=== PATIENT | male | born 1995 | race African-American/Black ===

== ENCOUNTER 2020-12-17 13:38 | Emergency (ER) | payer SELFPAY ==
--- OUTSIDE RECORDS SUMMARY | 2020-12-17 13:41 | XMS REPORT | Continuity of Care Document ---
:1995 Author Organization [facility] t Address [address] [place] [address] Care Team Providers Name Role Phone Lab, Fernando Pob I Attending Clinician Unavailable Problems This patient has no known problems. Allergies, Adverse Reactions, Alerts This patient has no known allergies or adverse reactions. Medications This patient has no known medications. Procedures This patient has no known procedures. Encounters Start End Encounter Admission Attending Care Care Encounter Source Date/Time Date/Time Type Type Clinicians Facility Department ID 2020-05-28 2020-05-28 Laboratory Lab, [facility] [id number] 18:26:53 19:03:44 Only Fam Pob I [facility] [id number] [place] [id number] [address] [phone] [address] Results This patient has no known results.
[2020-12-17] MEDS ORDERED: IBUPROFEN 400 MG TAB ONE (14:56)
[2020-12-17] MEDS ORDERED: HYDROCODONE/APAP 7.5/325 MG TAB ONE (14:56)
--- NOTE | 2020-12-17 15:36 | EDPHYS ---
Physician Documentation [facility] Name: Cornell Armenta Age: 25 yrs Sex: Male : 1995 Arrival Date: 12/17/2020 Time: 13:40 Bed 7 Private MD: TYSHAWN Physician Madhu Price HPI: 12/17 14:30 This 25 yrs old Black Male presents to ER via Ambulatory with complaints of Leg Pain. cp 14:30 The patient presents with an injury, pain, that is acute. The complaints affect the cp right Achilles. 14:30 Context: The problem was sustained at a sports field or court, the patient can cp partially bear weight, the patient is able to ambulate, with moderate difficulty, Problem is a result from a previous injury: No. Onset: The symptoms/episode began/occurred yesterday. Historical: - Allergies: 14:02 No Known Allergies; jl7 - Home Meds: 14:02 None [Active]; jl7 - PMHx: 14:02 None; jl7 - PSHx: 14:02 None; jl7 - Immunization history:: Adult Immunizations not up to date. - Social history:: Smoking status: Patient reports the use of cigarette tobacco products, smokes one-half pack cigarettes per day. ROS: 14:33 Constitutional: Negative for chills, fever. cp 14:33 MS/extremity: Positive for injury or acute deformity, decreased range of motion, pain, of the right Achilles. Exam: 14:35 Constitutional: The patient appears in no acute distress, alert, awake, non-toxic, well cp developed, well nourished. 14:35 Head/Face: Normocephalic, atraumatic. cp 14:35 Chest/axilla: Inspection: normal. 14:35 Cardiovascular: Rate: normal. 14:35 Respiratory: the patient does not display signs of respiratory distress, Respirations: normal, no use of accessory muscles, labored breathing, is not present. 14:35 Musculoskeletal/extremity: Pulses: noted to be 2+ in the right dorsalis pedis artery, Sensation intact. Joints: the right ankle displays no pain to palpation, Tendon exam: postive for pain, tender to palpation right Achilles, positive Ventura test. Vital Signs: 13:59 BP 144 / 80; Pulse 78; Resp 17; Temp 97.3; Pulse Ox 99% ; Weight 116.12 kg; Height 6 jl7 ft. 2 in. (187.96 cm); Pain 7/10; 13:59 Body Mass Index 32.87 (116.12 kg, 187.96 cm) jl7 Procedures: 16:05 Splinting: Splint applied to right lower leg using Orthoglass splint, posterior short cp leg with mild plantar flexion. applied by tech. Examined by me, post splint application: neurovascular intact, Patient tolerated well. MDM: 14:24 Patient medically screened. cp 15:35 Differential diagnosis: dislocation, closed fracture, sprain, Achilles tendon rupture. cp 15:35 Data reviewed: vital signs, nurses notes. cp 15:35 Counseling: I had a detailed discussion with the patient and/or guardian regarding: the cp historical points, exam findings, and any diagnostic results supporting the discharge/admit diagnosis, the need for outpatient follow up, for definitive care, a orthopedic surgeon, to return to the emergency department if symptoms worsen or persist or if there are any questions or concerns that arise at home. Response to treatment: the patient's symptoms have markedly improved after treatment, and as a result, I will discharge patient. 12/17 14:31 Order name: Splint - Posterior Leg; Complete Time: 15:55 cp 12/17 14:31 Order name: Crutches; Complete Time: 15:55 cp Administered Medications: 14:43 Drug: Ibuprofen 800 mg Route: PO; em 15:55 Follow up: Response: No adverse reaction; Marked relief of symptoms; Pain is decreased em 14:43 Drug: Hydrocodone-Acetaminophen (7.5 mg-325 mg) 1 tabs Route: PO; em 15:55 Follow up: Response: No adverse reaction; Marked relief of symptoms; Pain is decreased em Disposition: 16:15 Chart complete. cp Disposition: 12/17/20 15:35 Discharged to Home. Impression: Other specified injury of right Achilles tendon - rupture. - Condition is Stable. - Discharge Instructions: Complete Achilles Tendon Rupture. - Prescriptions for Naprosyn 500 mg Oral Tablet - take 1 tablet by ORAL route 2 times per day take with food; 30 tablet. Tylenol- Codeine #3 300-30 mg Oral Tablet - take 2 tablets by ORAL route every 8 hours As needed; 20 tablet. - Work release form, Medication Reconciliation Form, Thank You Letter, Antibiotic Education, Prescription Opioid Use form. - Follow up: Chema Bueno MD; When: 1 - 2 days; Reason: Recheck today's complaints. - Problem is new. - Symptoms have improved. Addendum: 12/19/2020 07:42 Co-signature as Attending Physician, Madhu Price MD I agree with the assessment and c recio plan of care. Signatures: Madhu Price MD MD cha Munoz, Edgar RN RN em Madhu Cheung, PA PA cp Awa Cheng RN RN jl7 Corrections: (The following items were deleted from the chart) 12/17 14:33 14:30 The complaints affect the left Achilles, cp cp 14:33 14:32 Context: The problem was sustained at a sports field or court, the patient can cp partially bear weight, the patient is able to ambulate, with moderate difficulty, Problem is a result from a previous injury: No. cp 14:33 14:32 Onset: The symptoms/episode began/occurred yesterday, cp cp 16:10 15:35 12/17/2020 15:35 Discharged to Home. Impression: Other specified injury of right em Achilles tendon - rupture. Condition is Stable. Forms are Medication Reconciliation Form, Thank You Letter, Antibiotic Education, Prescription Opioid Use. Follow up: Dr. Chema Bueno; When: 1 - 2 days; Reason: Recheck today's complaints. Problem is new. Symptoms have improved. cp
--- NOTE | 2020-12-17 15:36 | ER ---
Nurse's Notes [facility] Name: Cornell Armenta Age: 25 yrs Sex: Male : 1995 Arrival Date: 12/17/2020 Time: 13:40 Bed 7 Private MD: Diagnosis: Other specified injury of right Achilles tendon-rupture Presentation: 12/17 13:59 Chief complaint: Patient states: Playing basketball yesterday, [place] and heard a loud jl7 pop to right posterior ankle, reports inability to ambulate without pain. Coronavirus screen: Client denies travel out of the [place] in the last 14 days. At this time, the client does not indicate any symptoms associated with coronavirus-19. Ebola Screen: No symptoms or risks identified at this time. Initial Sepsis Screen: Does the patient meet any 2 criteria? No. Patient's initial sepsis screen is negative. Does the patient have a suspected source of infection? No. Patient's initial sepsis screen is negative. Risk Assessment: Do you want to hurt yourself or someone else? Patient reports no desire to harm self or others. Onset of symptoms was December 16, 2020. 13:59 Method Of Arrival: Ambulatory [facility] 13:59 Acuity: LARY 4 jl7 Triage Assessment: 14:02 General: Appears in no apparent distress. uncomfortable, Behavior is calm, cooperative, jl7 appropriate for age. Pain: Complains of pain in right Achilles Pain currently is 8 out of 10 on a pain scale. Historical: - Allergies: 14:02 No Known Allergies; jl7 - Home Meds: 14:02 None [Active]; jl7 - PMHx: 14:02 None; jl7 - PSHx: 14:02 None; jl7 - Immunization history:: Adult Immunizations not up to date. - Social history:: Smoking status: Patient reports the use of cigarette tobacco products, smokes one-half pack cigarettes per day. Screenin:47 Abuse screen: Denies threats or abuse. Nutritional screening: No deficits noted. em Tuberculosis screening: No symptoms or risk factors identified. Fall Risk None identified. Assessment: 14:38 General: Appears in no apparent distress. comfortable, Behavior is calm, cooperative. em Pain: Complains of pain in right Achilles Pain currently is 7 out of 10 on a pain scale. Neuro: Level of Consciousness is awake, alert, obeys commands, Oriented to person, place, time, situation. Cardiovascular: Capillary refill < 3 seconds Patient's skin is warm and dry. Respiratory: Airway is patent Respiratory effort is even, unlabored, Respiratory pattern is regular, symmetrical. Derm: Skin is intact, is healthy with good turgor, Skin is pink, warm \T\ dry. Musculoskeletal: Capillary refill < 3 seconds, Range of motion: limited in right ankle. Vital Signs: 13:59 BP 144 / 80; Pulse 78; Resp 17; Temp 97.3; Pulse Ox 99% ; Weight 116.12 kg; Height 6 jl7 ft. 2 in. (187.96 cm); Pain 7/10; 13:59 Body Mass Index 32.87 (116.12 kg, 187.96 cm) jl7 ED Course: 13:40 Patient arrived in ED. mr 14:01 Triage completed. jl7 14:02 Arm band placed on right wrist. jl7 14:18 Madhu Cheung PA is PHCP. cp 14:18 Madhu Price MD is Attending Physician. cp 14:25 Sander Sam, JOHNNIE is Primary Nurse. em 14:50 Patient has correct armband on for positive identification. Call light in reach. Adult em w/ patient. 15:31 Crutch training done. Orthoglass splint: Posterior long leg splint applied on right leg.em 15:34 Chema Bueno MD is Referral Physician. cp 15:56 No provider procedures requiring assistance completed. Patient did not have IV access em during this emergency room visit. Administered Medications: 14:43 Drug: Ibuprofen 800 mg Route: PO; em 15:55 Follow up: Response: No adverse reaction; Marked relief of symptoms; Pain is decreased em 14:43 Drug: Hydrocodone-Acetaminophen (7.5 mg-325 mg) 1 tabs Route: PO; em 15:55 Follow up: Response: No adverse reaction; Marked relief of symptoms; Pain is decreased em Outcome: 15:35 Discharge ordered by . cp 16:09 Discharged to home via wheelchair, with crutches. em 16:09 Condition: stable 16:09 Discharge instructions given to patient, Instructed on discharge instructions, follow up and referral plans. medication usage, crutch walking, Demonstrated understanding of instructions, follow-up care, medications, crutch walking, Prescriptions given X 2. 16:10 Patient left the ED. em Signatures: Concepcion Wade Edgar, RN RN em Madhu Cheung PA PA cp Leal, Jahala RN RN jl7
[2020-12-17 18:13] VITALS: BP 144/80; TEMP 97.3; O2SAT 99
== END 2020-12-17 16:10 | disposition home or self-care (01) ==
LOC: ER 13:38
PROC: 2W3QX1Z Immobilization of Right Lower Leg using Splint (ICD-10-PCS; principal; 2020-12-17)
DX: S86.011A Strain of right Achilles tendon, initial encounter (principal); F17.210 Nicotine dependence, cigarettes, uncomplicated
CPT/HCPCS: 99283